=== PATIENT | female | born 1955 | race Caucasian/White ===

== ENCOUNTER 2023-03-25 07:41 | Day surgery (SDC) | payer MEDICARE, OTHER ==
[2023-03-25] MEDS ORDERED: Depo-Medrol 40 MG/ML IM ONE (07:42)
[2023-03-25] MEDS ORDERED: LIDOCAINE HCL 1% 50 MG/5 ML VL PF IJ ONE (07:42)
[2023-03-25] MEDS ORDERED: BUPIVACAINE 0.5% VIAL IJ ONE (07:42)
[2023-03-25 08:25] LABS: INR 1.76 (0.8-3.0); PROTIME 18.4 SECONDS (9.4-12.5)
[2023-03-25] MEDS ORDERED: ZOFRAN ODT 4 MG PO ONE (08:45)
--- NOTE | 2023-03-25 09:51 | XRAY ---
Indication: Bilateral SI joint injection. Intraoperative fluoroscopy provided for 25 seconds. 4 digital spot images submitted for interpretation demonstrates posterior needle tip projecting over the expected left and right SI joint. Correlate with intraoperative findings/report. Incidental incompletely visualized lower lumbar fusion hardware.
--- NOTE | 2023-03-25 10:46 | XRAY ---
25 seconds of fluoroscopy was used in surgery for a bilateral sacroiliac joint injection.
[2023-03-25] MEDS ORDERED: Lactated Ringers 1,000 ML IV ONE (10:49)
== END 2023-03-25 09:15 | disposition home or self-care (01) ==
LOC: SDC-PAIN 07:41
PROVIDERS: ATTEND Psychiatry & Neurology Pain Medicine
DX: M46.1 Sacroiliitis, not elsewhere classified (principal); E11.9 Type 2 diabetes mellitus without complications; Z79.899 Other long term (current) drug therapy; Z79.01 Long term (current) use of anticoagulants
CPT/HCPCS: 27096; 36415; 72202; 77002; 82947; 85610; G0260; J1030; J2001; Q0162

== ENCOUNTER 2023-10-21 08:50 | Day surgery (SDC) | payer MEDICARE, OTHER ==
[2023-10-21] MEDS ORDERED: Depo-Medrol 40 MG/ML IM ONE (08:51)
[2023-10-21] MEDS ORDERED: Sodium Chloride 0.9(Preservative Free) 10 ML IJ ONE (08:51)
[2023-10-21] MEDS ORDERED: DIPRIVAN 200 MG/20 ML IV ONE (11:11)
[2023-10-21] MEDS ORDERED: Lactated Ringers 1,000 ML IV ONE (12:26)
--- NOTE | 2023-10-21 13:56 | XRAY ---
Indication: Caudal ROBYN. Intraoperative fluoroscopy provided for 38 seconds. 3 digital spot image submitted for interpretation demonstrates caudal needle tip projecting mid sacrum. Small amount of contrast injected for needle tip placement. Correlate with intraoperative findings/report. Incidental incompletely visualized lower lumbar posterior fusion hardware.
--- NOTE | 2023-10-21 14:09 | XRAY ---
38 seconds of fluoroscopy was used in surgery for a caudal ROBYN.
== END 2023-10-21 11:50 | disposition home or self-care (01) ==
LOC: SDC-PAIN 08:50
PROVIDERS: ATTEND Psychiatry & Neurology Pain Medicine
DX: M54.16 Radiculopathy, lumbar region (principal); E11.9 Type 2 diabetes mellitus without complications
CPT/HCPCS: 62323; 72220; 77003; 82947; J1030; J2704; Q9966

== ENCOUNTER 2024-04-13 08:31 | Day surgery (SDC) | payer MEDICARE, OTHER ==
[2024-04-13] MEDS ORDERED: Sodium Chloride 0.9(Preservative Free) 10 ML IJ ONE (08:32)
[2024-04-13] MEDS ORDERED: Depo-Medrol 40 MG/ML IM ONE (08:32)
[2024-04-13] MEDS ORDERED: DIPRIVAN 200 MG/20 ML IV ONE (10:12)
[2024-04-13] MEDS ORDERED: Lactated Ringers 1,000 ML IV ONE (10:53)
--- NOTE | 2024-04-13 12:19 | XRAY ---
Indication: Caudal ROBYN.. Intraoperative fluoroscopy provided for 12 seconds. 2 digital spot images submitted for interpretation demonstrates caudal needle tip projecting mid sacrum. Small amount of contrast injected for needle tip placement. Correlate with intraoperative findings/report.
--- NOTE | 2024-04-13 13:29 | XRAY ---
12 seconds of fluoroscopy was used in surgery for a caudal ROBYN.
== END 2024-04-13 10:40 ==
LOC: SDC-PAIN 08:31
PROVIDERS: ATTEND Psychiatry & Neurology Pain Medicine
DX: M54.16 Radiculopathy, lumbar region (principal); E11.9 Type 2 diabetes mellitus without complications
CPT/HCPCS: 62323; 72220; 77003; 82947; J2704; Q9966